=== PATIENT | male | born 1970 | race Two or more races ===

== ENCOUNTER 2024-10-25 00:07 | Emergency (ER) | payer MEDICAID, SELFPAY ==
[2024-10-25 00:10] VITALS: BMI 30.4
--- NOTE | 2024-10-25 00:27 | EDNOTE_ITS ---
ED Abdominal Pain RME/HPI General Chief Complaint: Abdominal Pain Stated complaint: ABD PAIN Time seen by provider: 10/25/24 00:17 Arrival date/time: 10/25/24 00:07 RME / HPI RME / HPI narrative: This section includes all my notes and documentations, including HPI, PE, and ED course. Tushar Jacobo MD HPI: 53 y/o male presents to ED c/o right flank pain that radiates down to the groin area x 5 days. In addition, patient also reports cough, congestion and shortness of breath x 5 days. No other complaints. ROS: All negative except as documented in HPI. Physical Exam: General: Alert and oriented. No acute distress. Eyes: Conjunctivae and lids clear. ENT: No nasal congestion. Pharynx normal. Tympanic membrane normal bilaterally. Neck: Supple. No lymphadenopathy. No JVD. Heart: RRR. Lungs: No respiratory distress. Good air movement. No rhonchi, wheezing, rales. Abdomen: Soft with RUQ tenderness normal bowel sounds. No distension. No rebound or guarding. Back: No CVA tenderness. : Right testicle slightly enlarged with no erythema or tenderness or calor. Legs: No clubbing, cyanosis, edema. Skin: Warm and dry. Neuro: Alert and oriented X 3. I reviewed all diagnostic test results. My review of the Testicular US report is hydrocele. My review of the Gallbladder report is cholelithiasis. My review of the Abdomen/Pelvis CT report is no acute findings. Blood tests and urine tests unremarkable. At this point, diagnoses include cholelithiasis and hydrocele. Treatment here included IV fluid, Zofran, Duoneb, Methylprednisolone, Morphine, Dilaudid. Significant improvement noted. Recommended more outpatient care. Based on my best medical judgment, made decision no further evaluation or treatment indicated at this time. Patient understands and agrees to the discharge instructions customized and printed, see below. Discharge Instructions from Dr. Jacobo: 1. After extensive evaluation, you have gallstone(s).? You need gallbladder to help digest fatty foods. 2. So to prevent future attacks, avoid all fatty and oily and greasy and buttery and dairy foods.? This usually means take out and fast food restaurants. 3. Zofran for nausea/vomiting.? Tylenol with codeine for severe pain.?? 4. Your right testicular swelling is due to hydrocele, benign fluid in the scrotum. See attached handout. 5. See a private doctor on 10/26/2024 for recheck and further care. Ask to review all test results and official radiology reports, to make sure you receive all necessary follow-ups and monitoring. Ask for help seeing a general surgeon to discuss elective surgery. For your hydrocele, ask for a referral to see urologist. 6. Seek immediate medical care with intolerable pain, fever, or with any concerns. Tushar Jacobo MD Related Data Previous Rx's ?Medication ?Instructions ?Recorded ondansetron 4 mg disintegrating 4 mg PO TID PRN nausea and 10/25/24 tablet vomiting 30 days #10 tabs Allergies Allergy/AdvReac Type Severity Reaction Status Date / Time ibuproxam Allergy Verified 10/25/24 00:16 naproxen (From Flanax Allergy Verified 10/25/24 00:16 (naproxen)) Review of Systems Review of Systems Systems Reviewed: All systems reviewed, normal except as documented Past Medical History Social History SMOKING STATUS: Never smoker ED Exam Narrative Physical exam: Refer to HPI above. Course Quality Measures none Orders Category Date Time Status Bedside COVID-19 Antigen Test NOW Care 10/25/24 00:30 Active Bedside Influenza A&B Antigen Test NOW Care 10/25/24 00:30 Completed Saline [Insert IV] NOW Care 10/25/24 00:[address] chest abdomen pelvis wo Stat Exams 10/25/24 00:35 Taken US gall bladder Stat Exams 10/25/24 00:34 Taken US testicular Stat Exams 10/25/24 00:34 Taken Amylase Stat Lab 10/25/24 00:47 Completed Bilirubin,Direct Stat Lab 10/25/24 00:47 Completed CBC Stat Lab 10/25/24 00:47 Completed CMP [Comprehensive Metabolic Panel] Stat Lab 10/25/24 00:47 Completed Lipase Stat Lab 10/25/24 00:47 Completed Magnesium Stat Lab 10/25/24 00:47 Completed UA, C/S IF [Urinalysis, C/S if Indicated] Stat Lab 10/25/24 00:47 Completed Albuterol/Ipratr Rt Bess [Duoneb Rt Bess] Med 10/25/24 00:31 Discontinued 3 ml INH X1 ONE Albuterol/Ipratr Rt Bess [Duoneb Rt Bess] Med 10/25/24 00:32 Discontinued 3 ml INH X1 ONE DiphenhydrAMINE INJ [Benadryl Inj] Med 10/25/24 00:31 Discontinued 50 mg IV X1 STA HYDROmorphone INJ [Dilaudid Inj] Med 10/25/24 03:00 Discontinued 1 mg IVP X1 ONE MethylPREDNISolone.* [SoluMEDROL Inj] Med 10/25/24 00:31 Discontinued 125 mg IVP X1 ONE Morphine Inj Med 10/25/24 00:31 Discontinued 4 mg IVP X1 ONE Ondansetron Inj [Zofran Inj] Med 10/25/24 00:31 Discontinued 4 mg IV X1 ONE Sodium Chloride 0.9% 1000 ml [Ns] 1,000 ml Med 10/25/24 00:31 Discontinued IV 999 mls/hr Vital Signs Vital signs: Vital Signs Temperature 98.1 F 10/25/24 00:31 Pulse Rate 83 10/25/24 00:31 Respiratory Rate 16 10/25/24 00:31 Blood Pressure 139/98 H 10/25/24 00:31 Pulse Oximetry (%) 96 10/25/24 00:31 Oxygen Delivery Method Room Air 10/25/24 00:31 Abdominal Pain MDM MDM Narrative MDM Narrative:: Scribe Attestation: Fallon Weathers, am scribing for and in the presence of Dr. Jacobo. Provider Notation: Although this document has been carefully reviewed, there may still be some phonetic and other typographical errors.? These errors are purely grammatical due to imperfections in the software program and should not be construed in any way to? compromise the substance of the patient's medical care during this visit. 53 y/o male presents to ED c/o right flank pain that radiates down to the groin area x 5 days. In addition, patient also reports cough, congestion and shortness of breath x 5 days. No other complaints. Patient data External records reviewed:: [facility] previous records (No prior ED records available for review.) Clinical information provided by:: patient Social determinants that could affect healthcare access:: none Patient has the following chronic illnesses:: None reported How is presenting disease/condition affected by chronic disease/condition?: no chronic disease Evaluation data The following diagnostics were reviewed and interpreted by me:: lab results and radiology exam(s) Lab and/or radiology exams considered but not ordered:: None Interpretation Summary: I reviewed all diagnostic test results. My review of the Testicular US report is hydrocele. My review of the Gallbladder report is cholelithiasis. My review of the Abdomen/Pelvis CT report is no acute findings. Blood tests and urine tests unremarkable. Medications / Prescriptions Medications or Prescriptions considered but not ordered:: None Medication administrations:: Medication Administration History Discontinued Medications Albuterol/Ipratropium (Albuterol/Ipratropium (Duoneb) Rt Bess 3 Ml Nebu) 3 ml INH X1 ONE Stop: 10/25/24 00:32 Last Admin: 10/25/24 01:07 Dose: Not Given Documented By: EE Non-Admin Reason: Cancelled by Provider Albuterol/Ipratropium (Albuterol/Ipratropium (Duoneb) Rt Bess 3 Ml Nebu) 3 ml INH X1 ONE Stop: 10/25/24 00:33 Last Admin: 10/25/24 01:27 Dose: 3 ml Documented By: ALYSSA Diphenhydramine HCl (Diphenhydramine Inj 50 Mg/Ml Vial) 50 mg IV X1 STA Stop: 10/25/24 00:32 Last Admin: 10/25/24 01:20 Dose: Not Given Documented By: EE Non-Admin Reason: Cancelled by Provider Hydromorphone HCl (Hydromorphone Inj 2 Mg/Ml Vial) 1 mg IVP X1 ONE Stop: 10/25/24 03:01 Last Admin: 10/25/24 03:17 Dose: 1 mg Documented By: TRINA Sodium Chloride (Ns) 1,000 mls @ 999 mls/hr IV .Q1H1M ONE Stop: 10/25/24 01:31 Last Infusion: 10/25/24 02:40 Dose: Infused Documented By: Admin: 10/25/24 00:54 Dose: 999 mls/hr Documented By: EE Methylprednisolone Sodium Succinate (Methylprednisolone Sod Succ 62.5 Mg/Ml 2ml Vial) 125 mg IVP X1 ONE Stop: 10/25/24 00:32 Last Admin: 10/25/24 00:54 Dose: 125 mg Documented By: EE Morphine Sulfate (Morphine Sulf Inj 10 Mg/Ml Vial) 4 mg IVP X1 ONE Stop: 10/25/24 00:32 Last Admin: 10/25/24 00:52 Dose: 4 mg Documented By: EE Ondansetron HCl (Ondansetron Inj 2 Mg/Ml Inj 2 Ml) 4 mg IV X1 ONE; Protocol Stop: 10/25/24 00:32 Last Admin: 10/25/24 00:53 Dose: 4 mg Documented By: EE Treatment here included IV fluid, Zofran, Duoneb, Methylprednisolone, Morphine, Dilaudid. Consultations Consultation(s) initiated? (list below): No Diagnosis Differential diagnosis abdominal pain: abdominal pain, acute appendicitis, calculus of kidney, constipation, diverticulitis, endometriosis, gastroenteritis, pancreatitis, small bowel obstruction and other (testicular torsion, epididymitis, orchitis, URI, influenza, bronchitis, PNA) Most likely diagnosis given after review of the tests above:: Cholelithiasis and hydrocele. Admission Indicated Admission indicated?: not indicated Explain why admission is indicated or not indicated:: With significant improvement, there was no indication for admission. Admission Request Was there a request for admission?: No Disposition Plan Disposition Plan: Discharge Discharge Attestation Discharge Attestation: The patient and all family members were given an opportunity to ask questions and understood the discharge instructions. Discharge instructions specifically effects, indications for sooner follow up or return to the emergency department, and the expected course of current diagnosis. Patient condition: Stable Discharge Plan Plan Patient Disposition: HOME (Self Care) Prescriptions/Referrals Prescriptions/Med Rec: New ondansetron 4 mg tablet,disintegrating 4 mg PO TID PRN (Reason: nausea and vomiting) 30 Days Qty: 10 0RF Referrals: No Primary/Family,Physician [Primary Care Provider] - In 1 week Problem List Clinical Impression: Gallstones, Hydrocele Patient/Caregiver Discharge Instructions Discharge Activity: activity as tolerated Education Materials: ED Gallstones with Biliary Colic, ED Hydrocele, Type Not Specified Additional Instructions: Discharge Instructions from Dr. Jacobo: 1. After extensive evaluation, you have gallstone(s).? You need gallbladder to help digest fatty foods. 2. So to prevent future attacks, avoid all fatty and oily and greasy and buttery and dairy foods.? This usually means take out and fast food restaurants. 3. Zofran for nausea/vomiting.? Tylenol with codeine for severe pain.?? 4. Your right testicular swelling is due to hydrocele, benign fluid in the scrotum. See attached handout. 5. See a private doctor on 10/26/2024 for recheck and further care. Ask to review all test results and official radiology reports, to make sure you receive all necessary follow-ups and monitoring. Ask for help seeing a general surgeon to discuss elective surgery. For your hydrocele, ask for a referral to see urologist. 6. Seek immediate medical care with intolerable pain, fever, or with any concerns. Print Language: Kinyarwanda Stand Alone Forms: [employer] Award Info., Patient Portal Info Letter
[2024-10-25 00:31] VITALS: BP 139/98; PULSE 83; RESP 16; TEMP 36.7; O2SAT 96
--- NOTE | 2024-10-25 00:34 | XR_ITS ---
Examination: Abdomen sonogram, Limited Date and time of exam: October 25, 2024, 0224 hours INDICATIONS: Abdominal pain and scrotal pain beginning several days ago Technique: Real-time gentile scale transabdominal sonographic images of the upper abdomen obtained. Findings: 13 mm gallstone Gallbladder wall normal Normal common bile duct 0.3 cm Pancreatic head appears prominent 3.8 cm Liver 17.1 cm fatty infiltration irregular liver contour. Normal hepatopedal portal venous flow Patent IVC IMPRESSION: Cholelithiasis, negative for cholecystitis Suspect primary hepatocellular disease
--- NOTE | 2024-10-25 00:34 | XR_ITS ---
Examination: Testicular sonography complete TECHNIQUE: Zhang scale sonographic images testes, assessment arterial inflow venous outflow Doppler spectrum analysis color flow analysis Exam date and time: October 25, 2024 0241 hours INDICATIONS: Right scrotal pain beginning 2 days ago FINDINGS: Right testicle 4.1 cm epididymis not visualized Arterial flow to the testicle. No testicular mass Significant hydrocele Left testis is 4.0 cm epididymis 8 mm Arterial flow to the testicle Mild hydrocele IMPRESSION: No testicular torsion or testicular Mass. Prominent right hydrocele
--- NOTE | 2024-10-25 00:35 | XR_ITS ---
Examination: CT chest, without intravenous contrast. CT abdomen, without intravenous contrast. CT pelvis, without intravenous contrast. 2-D sagittal and coronal reconstructions. 3-D reconstructions. Date and time of exam:October 25, 2024 0241 hours INDICATIONS: Onset chest pain and right flank pain abdominal pain and coughing shortness of breath beginning 5 days ago CTDI vol (mgy) 9.95 DLP (MGycm)769 Technique: Multiple CT images, 3.0 mm slice thickness, obtained chest, abdomen, pelvis, with the high-resolution 64 slice scanner.. Sagittal and coronal 2-D reconstructions are obtained. 3-D reconstructions Low dose protocols were performed. One or more of the following dose reduction techniques were used; automated exposure control, adjustment of the mA and/or KV according to patient size, use of iterative reconstruction technique. Findings: No thoracic aortic aneurysm dilatation Pulmonary artery segments are not remarkable No paratracheal tracheobronchial or bronchopulmonary adenopathy No pneumonia, pulmonary edema or pleural disease No focal liver or splenic lesion No gallstones No pancreatic or adrenal mass Mild bilateral renal parenchymal scar formation No renal or ureteral calculi, no hydronephrosis 8 mm fat-containing umbilical hernia No pericystic inflammatory changes No bowel obstruction Distended urinary bladder No prostatomegaly IMPRESSION: No pneumonia, pleural disease or pulmonary edema No acute process in the abdomen or pelvis
[2024-10-25] MEDS: MORPHINE SULF INJ 10 MG/ML VIAL 4 MG IVP (00:52)
[2024-10-25] MEDS: ONDANSETRON INJ 2 MG/ML INJ 2 ML 4 MG IV (00:53)
[2024-10-25] MEDS: MethylPREDNISolone SOD SUCC 62.5 MG/ML 2ML VIAL 125 MG IVP (00:54)
[2024-10-25] MEDS: SODIUM CHLORIDE 0.9% 1000 ML 1,000 ML 999 ML IV (00:54)
[2024-10-25 01:25] LABS: Collection Type, Urine Clean Catch
[2024-10-25 01:26] LABS: Basophils # (Auto) 0.1 Thou/mm3 (0.0-0.2); Basophils % (Auto) 1 % (0-2.5); Eosinophils # (Auto) 0.3 Thou/mm3 (0.0-0.5); Eosinophils % (Auto) 3 % (0-10); Hematocrit 43.1 % (41.0-53.0); Hemoglobin 15.4 g/dL (13.5-16.0); Immature Granulocytes % (Auto) 0 % (0-0); Immature Granulocytes Auto 0.02 Thou/mm3 (0.00-0.00); Lymphocytes # (Auto) 2.6 Thou/mm3 (1.0-4.8); Lymphocytes % (Auto) 30 % (10-50); Mean Corpuscular HGB Conc 35.7 g/dl (31.0-37.0); Mean Corpuscular Hemoglobin 29.6 pg (25.0-35.0); Mean Corpuscular Volume 83 fL (80-100); Monocytes # (Auto) 0.6 Thou/mm3 (0.0-0.8); Monocytes % (Auto) 7 % (0-12); Neutrophils % (Auto) 59 % (37-80); Nucleated Red Blood Cell % 0 /100 WBC (0); Platelet Count 213 Thou/mm3 (140-440); RDW Standard Deviation 38.5 fL (35.1-43.9); Red Blood Count 5.21 Miln/mm3 (4.50-5.90); White Blood Count 8.4 Thou/mm3 (3.8-10.6)
[2024-10-25] MEDS: ALBUTEROL/IPRATROPIUM (Duoneb) RT SOL 3 ML NEBU INH (01:27)
[2024-10-25 01:37] LABS: Bilirubin,Urine Negative (Negative); Blood,Urine Negative (Negative); Clarity,Urine Clear (Clear/Hazy); Color,Urine Yellow (Lt Yel-Yel); Culture Indicated,Urine Not Indicated; Glucose, Urine Negative (Negative); Ketones,Urine Negative (Negative); Leukocyte Esterase,Urine Negative (Negative); Nitrite,Urine Negative (Negative); Protein,Urine Negative (Neg - Trace); RBC,Urine 3 /hpf (0-3); Specific Gravity,Urine 1.026 (1.001-1.035); Squamous Epithelial Cell,Urine 1 /hpf (0-5); Urobilinogen,Urine Negative mg/dL (0.0-1.0); WBC,Urine < 1 /hpf (0-5)
[2024-10-25 01:41] VITALS: PULSE 73; RESP 16; O2SAT 98
[2024-10-25 02:04] LABS: Alanine Aminotransferase 37 U/L (10-49); Albumin, Serum 4.5 gm/dL (3.5-5.0); Alkaline Phosphatase 80 U/L (46-116); Amylase 116 U/L (30-118); Anion Gap 10 (7-16); Aspartate Amino Transferase 25 U/L (0-34); BUN/Creatinine Ratio 14 Ratio (12-20); Bilirubin,Total 0.3 mg/dL (0.3-1.2); Blood Urea Nitrogen 13 mg/dL (9-23); Carbon Dioxide 24.9 mMol/L (20.0-31.0); Chloride 107 mMol/L (98-107); Creatinine (Component) 0.9 mg/dL (0.6-1.3); Glucose 128 mg/dL (74-106); Lipase 92 U/L (12-53); Magnesium 2.1 mg/dL (1.6-2.6); Osmolality,Calculated 285 (275-295); Potassium 3.6 mMol/L (3.4-5.1); Sodium 142 mMol/L (136-145); eGFR > 60 See Note
[2024-10-25 02:10] VITALS: BP 141/82; PULSE 75; RESP 16; TEMP 37; O2SAT 99
[2024-10-25 02:10] LABS: Albumin/Globulin Ratio 1.5 (1.2-2.2); Bilirubin,Direct < 0.1 mg/dL (0.0-0.3); Total Protein 7.5 gm/dL (5.7-8.2)
--- NOTE | 2024-10-25 03:14 | PRELIM_ITS ---
CT scan of the chest, abdomen and pelvis without intravenous contrast (axial sections with sagittal and coronal reformats) October 25, 2024 0113 hours Clinical History: Right flank pain, cough/sob No prior study is available for comparison. Findings: Subpleural scarring is noted in bilateral lungs, predominantly in lower lungs. Lungs appear heterogenous, likely related to small airway disease. No evidence of focal consolidation. There is no pleural effusion or pneumothorax. The aorta is unremarkable on this noncontrast study. No evidence of mediastinal mass or lymphadenopathy. There is no pericardial effusion. The liver, gallbladder, spleen, pancreas, adrenals and kidneys are unremarkable on this noncontrast study. Fluid filled mildly dilated duodenum and proximal jejunal loops. Moderate amount of fecal material is present in the colon. The appendix is not visualized. The urinary bladder is markedly distended. There is no free fluid or free air. A small fat-containing left inguinal and umbilical hernia is present. Mild degenerative changes are identified in the spine. Impression: No evidence of renal/ureteric calculus or hydroureteronephrosis. Distended urinary bladder, likely related to urinary retention. No focal consolidation or pleural effusion. Fluid filled mildly dilated duodenum and proximal jejunal loops, likely ileus. Other findings as described above. Report Electronically Signed By: Jad Lewis 10/25/2024 3:14:01 AM [EST]
[2024-10-25] MEDS: HYDROmorphone INJ 2 MG/ML VIAL 1 MG IVP (03:17)
[2024-10-25 04:00] VITALS: BP 140/82; PULSE 85; RESP 16; TEMP 37; O2SAT 99
--- NOTE | 2024-10-25 04:45 | PRELIM_ITS ---
Gallbladder ultrasound. October 25, 2024 at 0224 hours Clinical history: Right upper quadrant tenderness. Comparison: No prior study is available for comparison. Findings: Gallbladder wall is 2 mm thick. 1.2 cm calculus in the gallbladder neck. No gallbladder sludge. Patient was nontender over the gallbladder. Common bile duct is 3 mm in diameter. Pancreas is unremarkable to the extent visualized. Liver is 17 cm long and hyperechoic. Mildly irregular liver contour. Main portal vein is antegrade. Inferior vena cava is patent. Limited by large body habitus and bowel gas. Impression: Cholelithiasis without findings cholecystitis. Fatty liver infiltration and mild hepatomegaly. Report Electronically Signed By: Nghia Hoffman 10/25/2024 4:44:51 AM [EST]
--- NOTE | 2024-10-25 04:47 | PRELIM_ITS ---
Ultrasound of the scrotum. October 25, 2024 at 0241 hours Clinical history: Right edema tenderness. Technique: Real-time ultrasound was performed using Duplex scanning including arterial inflow, venous outflow, color and spectral Doppler analysis of both testes. Comparison: No prior study is available for comparison. Findings: The right testicle is 4.1 x 2.6 x 3.1 cm. Left testicle is 4.0 x 2.5 x 3.0 cm. Moderate size right hydrocele. The testicles have normal Doppler flow bilaterally. Normal left epididymis. Right epididymis is not visualized. Impression: 1. Moderate size right hydrocele. 2. Normal testicles. 3. No inflammation is seen. Report Electronically Signed By: Nghia Hoffman 10/25/2024 4:47:08 AM [EST]
[2024-10-25 05:24] VITALS: BP 139/95; PULSE 80; RESP 16; TEMP 37; O2SAT 99
== END 2024-10-25 05:28 | disposition home or self-care (01) ==
PROVIDERS: Emergency Provider Emergency Medicine
DX: K80.20 Calculus of gallbladder without cholecystitis without obstruction (principal); N43.3 Hydrocele, unspecified
CPT/HCPCS: 36415; 71250; 74176; 76705; 76870; 80053; 81001; 82150; 82248; 83690; 83735; 85025; 87400; 87811; 94640; 96361; 96374; 96375; 99284; A9270; J1171; J2270; J2405; J2919; J7030